=== PATIENT | female | born 1970 | race Caucasian/White ===

== ENCOUNTER 2022-07-10 17:39 | Emergency (ER) | payer SELFPAY ==
[2022-07-10 19:17] LABS: SARS-CoV-2 NAA Rapid Test Not Detected (NotDetected)
[2022-07-10] MEDS ORDERED: Dexamethasone 4 MG TAB ONE (20:09)
== END 2022-07-10 20:48 | disposition home or self-care (01) ==
LOC: CSHERS 17:39
DX: J04.0 Acute laryngitis (principal); F17.210 Nicotine dependence, cigarettes, uncomplicated; Z20.822 Contact with and (suspected) exposure to COVID-19
CPT/HCPCS: 99283; J8540